=== PATIENT | female | born 1935 | race Caucasian/White ===

== ENCOUNTER 2017-01-10 12:04 | Observation (INO) | payer MEDICARE, OTHER ==
[~2017-01-10] VITALS: Ht 160 cm; Wt 85.0 kg
[~2017-01-10 12:04] MED LIST: ACET-1453 PO; ALLO100T PO; ASPI-653 PO; BANO NS; CALC1CAP26 PO; CHOL500011 PO; LYR75 PO; OMEG1CAP20 PO; OMEP20TA86 PO; PRE5 PO; PRED5TAB PO; SIMV80TA PO; SYN.1T2 PO; TOPR25T PO; [UNRECOGNIZED DRUG - CODE] PO
[2017-01-10 12:29] VITALS: BP 118/70; PULSE 69; RESP 19; O2SAT 100
--- NOTE | 2017-01-10 12:56 | DRSVH ---
PROCEDURE: X-RAY CHEST ONE VIEW, PORTABLE ([id number]) INDICATIONS: FOUND UNRESPONSIVE TECHNIQUE: One view of the chest was acquired. COMPARISON: None. FINDINGS: Surgical changes and devices: None. Lungs and pleura: No pleural effusions or pneumothorax. Lungs are clear. Mediastinum: Mediastinal contours appear normal. Heart size is normal. Bones and chest wall: No suspicious bony lesions. Overlying soft tissues appear unremarkable. IMPRESSION: No acute process. Dictated by: Anita Umanzor M.D. on 01/10/2017 at 12:55 Approved by: Anita Umanzor M.D. on 01/10/2017 at 12:55
[2017-01-10 12:59] VITALS: BP 133/63; PULSE 59; RESP 15; O2SAT 99
[2017-01-10 12:59] LABS: BASOPHILS % (AUTO) 0.2 % (0-3); EOSINOPHILS % (AUTO) 0.3 % (0-5); MONOCYTES % (AUTO) 7.2 % (4-12); Mean Corpuscular Volume 92.4 fL (81-100); NEUTROPHILS % (AUTO) 60.7 % (40-74); Platelet Count 197 bil/L (150-400)
--- NOTE | 2017-01-10 13:19 | ED.REPORT ---
HPI-Altered Mental Status Date of Service Jan 10, 2017 ED Provider: Ras Sullivan MD An 81 year old female with h/o macular degeneration, UT w/stents, and adrenal insufficiency presents to the ED via EMS due to syncope onset earlier today. Per EMS, patient she was found unresponsive in the passenger seat of her vehicle while she was being driven by . On scene, her blood pressure was 70 palp and HR was 50. Per nurse, she was given 500 cc fluid en route, pressure climbed into the 90's she is now 133/63. Patient reports that she had leaned back in the car to take a nap. She reports similar syncope episode in the past. Patient was being driven to GI appointment to be seen for 6 weeks of diarrhea. She reports intermittent diarrhea for 3-4 years. In mid-november she started to have diarrhea 3x daily. Diarrhea has been accompanied by weight loss (25 pounds in 6 weeks) , abdominal pain described as pressure, lightheadedness, fatigue and some hematochezia. She reports being dehydrated right now. She denies any current abdominal pain, chills, diaphoresis, or any other pain at this time. She took 3 Imodium this morning . Nursing Notes Stated Complaint: LOC Chief Complaint: General Complaint Nursing Notes Reviewed: Yes ([employer], [employer] not reconciled) Allergies: Coded Allergies: NSAIDS (Non-Steroidal Anti-Inflamma (Verified Allergy, Unknown, 01/10/17) Silver (Verified Allergy, Unknown, 01/10/17) alendronate sodium (Verified Allergy, Unknown, 01/10/17) celecoxib (Verified Allergy, Unknown, 01/10/17) fentanyl (Verified Allergy, Unknown, 01/10/17) APNEA gabapentin (Verified Allergy, Unknown, 01/10/17) OVER SEDATION omeprazole (Verified Allergy, Unknown, 01/10/17) silver (Verified Allergy, Unknown, 01/10/17) RED ITCHY RASH Uncoded Allergies: ANTI INFLAMMATORIES (Allergy, Unknown, 01/10/17) Scheduled Acetaminophen (Tylenol Arthritis) 650 Mg Tablet.er 1,300 MG PO QAM Allopurinol (Allopurinol) 300 Mg Tablet 300 MG PO QAM Aspirin (Aspirin) 81 Mg Tablet 81 MG PO HS Atorvastatin Calcium (Atorvastatin Calcium) 40 Mg Tablet 40 MG PO HS Calcium Carbonate/Vitamin D3 (Calcium 600 + Vit D Tablet) 1 Each Tablet 1 EACH PO BID Cholecalciferol (Vitamin D3) (Vitamin D3) 5,000 Unit Capsule 5,000 UNIT PO QAM Dextran 70/Hypromellose/Pf (Tears Naturale Free Drops) 1 Each Droperette 2 DROP BOTH_EYES BID Fish Oil/Dha/Epa (Fish Oil 1,200 mg Fish Oil) 1 Each Capsule 1 EACH PO QAM L. Acidophilus/L. Rhamnosus (Probiotic 15 Billion Cell Cap) 15 Billion Cell Capsule 1 EACH PO QAM Levothyroxine (Levothyroxine) 100 Mcg Tablet 100 MCG PO QAM Losartan Potassium (Losartan Potassium) 25 Mg Tablet 25 MG PO QAM Metoprolol Tartrate (Metoprolol Tartrate) 25 Mg Tablet 25 MG PO QAM Multivitamin (Multivitamins) 1 Each Capsule 1 EACH PO QAM Pantoprazole DR (Pantoprazole DR) 40 Mg Tablet.dr 40 MG PO QAM Prednisone (PredniSONE) 5 Mg Tab 5 MG PO QAM Pregabalin (Lyrica) 150 Mg Capsule 150 MG PO HS Triamterene/HCTZ 75-50 mg (Triamterene/HCTZ 75-50 mg) 1 Each Tablet 1 EACH PO QAM Ubidecarenone/Vit E Acetate (Co Q-10 100 mg Softgel) 1 Each Capsule 1 EACH PO HS Vit C/Tonio AC/Lut/Copper/Znox (Preservision Lutein Softgel) 1 Each Capsule 1 EACH PO BID diphenhydrAMINE HCl (Benadryl) 25 Mg Capsule 25 MG PO HS General Time Seen by MD: 13:15 Chief Complaint Other (syncope) Hx Obtained From: Patient, EMS Arrived By: Ambulance Sudden in Onset?: No Onset Occurred: 1 - 4 hours ago Symptom Duration: Duration unknown Progression since Onset: Gradually improving Severity: Current: No pain currently Severity: Maximum: Moderate Recent Healthcare: Recent doctor visit Similar Sx Previous: No Past Medical History Past Medical History Mild [place]'s disease, on prednisone 5 mg daily currently (has instructions to increase to 50 mg daily when ill or 20 mg every 12 for gout attack) chronic mild intermittan diarrhea for last 3-4 years, that was intermittent-however there has been a much worsening 3x daily since November, now w/25lb unintential wt loss History of a squamous cell carcinoma Reports: Coronary artery disease (status post UT in 2002 with 2 stents), GERD, Hyperlipidemia, Hypertension Reports: Thyroid disease (hypothyroid) Past Surgical History A catheterization with 2 stents in 2002 Left hip replacement Right knee replacement Reports: Cataract surgery, Hysterectomy, Tonsillectomy Social History She has not driven a vehicle in 6 years. Review of Systems Review of Systems Note: Dehydrated Constitutional: Reports: Fatigue, Recent wt loss, Denies: Chills GI: Reports: Diarrhea, Denies: Abdominal pain Skin: Denies Diaphoresis Neurologic: Reports: Lightheaded, Syncope Complete sys rev & neg: except as marked. Physical Exam Initial Vital Signs Vital Signs (First) Date Time Temp Pulse Resp B/P Pulse Ox O2 Delivery O2 Flow Rate FiO2 01/10/17 12:29 36.4 69 19 118/70 100 Room Air Initial VS: Reviewed, Vital signs normal, Vital signs abnormal (reportedly hypotensive for EMS with blood pressure of 70 or 80) General/Constitutional: Awake, Alert Appropriate. Globaly weak, but answers questions and provides a good history. Head / Eyes: Atraumatic, Normocephalic, PERRL, EOMI Neck: Atraumatic, Supple Respiratory / Chest: Atraumatic, Breath sounds NL, Breath sounds = bilat, No respiratory distress, No rales, No rhonchi, No wheezing Cardiovascular: Heart rate NL, Regular rhythm, Heart sounds NL, No gallop, No murmurs, No rubs Heart tones normal. No edema. Neurologic: Oriented X3, Speech NL No focal deficit. Mouth: Positive: Mucous membranes dry Abdomen: Atraumatic, Soft, Non-tender, No guarding, No rebound No peritonitis. Skin: Atraumatic, Color NL, Warm, Dry Interpretation & Diagnostics Lab Results Interpretation Result Diagram: 01/10/17 1251 01/10/17 1251 Test 01/10/17 12:51 01/10/17 14:25 White Blood Count 10.5th/mm3 (3.8-10.1) Red Blood Count 4.10mil/mm3 (3.90-5.20) Hemoglobin 12.3g/dL (12.0-15.6) Hematocrit 37.9% (35.0-46.0) Mean Corpuscular Volume 92.4fL (81-100) Mean Corpuscular Hemoglobin 30.0pg (27.0-35.0) Mean Corpuscular Hemoglobin Concent 32.5% (32.0-37.0) Red Cell Distribution Width 13.6% (12.3-15.4) Platelet Count 197bil/L (150-400) Neutrophils (%) (Auto) 60.7% (40-74) Lymphocytes (%) (Auto) 31.4% (14-46) Monocytes (%) (Auto) 7.2% (4-12) Eosinophils (%) (Auto) 0.3% (0-5) Basophils (%) (Auto) 0.2% (0-3) Sodium Level 138mEq/L (134-144) Potassium Level 4.6mEq/L (3.5-5.2) Chloride Level 98mEq/L (97-108) Carbon Dioxide Level 21mmol/L (18-29) Blood Urea Nitrogen 34mg/dL (8-27) Creatinine 1.50mg/dL (0.57-1.00) Estimat Glomerular Filtration Rate 48mL/min (>59) Glucose Level 129mg/dL (60-99) Calcium Level 10.6mg/dL (8.5-10.1) Magnesium Level 1.9mg/dL (1.6-2.6) Total Bilirubin 0.3mg/dL (0.0-1.2) Aspartate Amino Transf (AST/SGOT) 28U/L (0-50) Alanine Aminotransferase (ALT/SGPT) 15U/L (0-32) Alkaline Phosphatase 55U/L (25-165) Troponin T 0.051ug/L (0.0-0.011) Total Protein 7.9g/dL (6.4-8.4) Albumin 4.3g/dL (3.4-5.0) Lactic Acid Level 2.0mmol/L (0.4-2.0) Lab Results Interpretation: CBC mild leukocytosis, nonspecific CMP renal insufficiency suspect acute kidney injury, technically unknown baseline Patient reports stool studies obtained as an outpatient were reportedly negative, husbands working to get a copy Troponin elevated ECG Interpretation ECG Interpretation: Rate is 58. Sinus rhythm. Bradycardia. Time: 12:55 Interpreted by: ED physician ECG Interpretation: Rate is 57. Normal sinus rhythm. No acute ischemia abnormality. No interval change when compared to EKG 1. Time: 14:09 Interpreted by: ED physician X-Ray Chest Interpretation Chest Xray Interpretation: IMPRESSION: No acute process. Dictated by: Anita Umanzor M.D. on 01/10/2017 at 12:55 Approved by: Anita Umanzor M.D. on 01/10/2017 at 12:55 Interpretation / Wet Read by: Interpret - Radiologist CT Head Interpretation IMPRESSION: 1. No acute intracranial abnormality. 2. Chronic left frontal infarct. Dictated by: Anita Umanzor M.D. on 01/10/2017 at 13:57 Approved by: Anita Umanzor M.D. on 01/10/2017 at 13:58 Interpretation / Wet Read by: Interpret - Radiologist Re-Eval/Medical Decision Med Decision/Clinical Course This is an 81-year-old female chronic Jeffrey's on daily prednisone he reports she has had some intermittent chronic diarrhea for several years, starting November is a dramatic worsening. She has lost 25 pounds unintentionally, become increasingly weak. Today she had her driving her to an appointment to see a GI specialist in [place] for the first time for further evaluation, as she lives on AND has been had all of her care through her PCP there including a reportedly negative status stool studies, she felt dizzy, so laid back and told her that she wanted to stop at the next breast area because she is concerned about diarrhea, and when the stopped, she was unresponsive and middle to wake up. No extra called, and the patient was hypotensive blood pressure 70, but regained consciousness immediately with IV fluids on arrival she is now normotensive and has no complaints but able to give a reasonable history. She denies fevers chills blood loss other than a trace amount of blood maybe 4 weeks ago there was transient, and has not recurred. She denies chest pain or cardiac symptoms-but does have a previous history of cardiac stents following an UT in 2002. She denies abdominal pain. Exam she does appear clinically dehydrated, but does not appear toxic. Heart lung exams are normal common abdomen is entirely soft nontender without signs of peritonitis. An EKG reveals no ischemic symptoms, but is repeated when the troponin was elevated and again no acute ischemic changes evident. The patient's responded to IV fluids, given her Jeffrey's severity of presentation C stress dose steroids with administrated dose of hydrocortisone. He also received aspirin. I suspect the troponin bump was secondary to the hypotension and demand ischemia rather than a primary cardiac event, but the overall presentation highly suggestive of diarrhea leading to volume depletion. The patient's done while in the department and clinically appears well. I contacted the GI doctor in [place] ends the patient and informed them she missed her appointment. At this point the plan is admission to the hospital, continued fluid administration, I would recommend serial enzymes, and GI consultation is been requested-with the thought that once the cardiac stability is been better proven, jackets E the patient for their input on this worsening GI illness. At this stage I am not finding clinical features of hemorrhage or infection to necessitate blood administration or antibiotics. The patient lab work is demonstrated for some renal deficiency, and I suspect acute kidney injury in this setting of this volume depletion as described. However I do not have prior creatinine for direct comparison. Source of Hx: Old records, EMS Re-Evaluation/Progress : Time of Eval: 13:29 Re-Evaluation/Progress Note: Explained plan for possible admission. Consultation : Referral / Consult Name: May Jimenez MD Call Returned at: 14:17 Display Screen Fabricator: Will see patient, Agrees with eval Note: Dsicussed patient case with Dr. Shirley , Print Support Specialist who will see the patient tomorrow. Differential Diagnosis: Positive: Dehydration, Hypotension, Negative: Congestive heart failure, Dystonic reaction, Intracerebral hemorrhage, Sepsis, Serotonin syndrome, Uremia Counseled Regarding: Diagnosis, Lab results, Need for follow-up, Need for admission Patient Discharge & Departure Impression: Primary Impression: Hypovolemic shock Additional Impressions: Dehydration Diarrhea Diarrhea type: unspecified type Qualified Code: R19.7 - Diarrhea, unspecified Elevated troponin Acute kidney injury Adrenal insufficiency Disposition: ADMITTED TO HOSPITAL Referrals: Lavell Sullivan MD (PCP) Crit Care Except Billable Proc Time Spent: 30-74 minutes Services Performed: Patient management by me, Time spent at bedside, Reviewing test results, Reviewing imaging, Discussing patient care, Documentation in record, Time with fam/surrogate, Other Scribe Attestation Portions of this note were transcribed by Nathanael Adames. I, Dr. Sullivan personally performed the history, physical exam and medical decision-making; I reviewed and confirmed the accuracy of the information in the transcribed note. Signed by: Velma Hernandez, 01/10/2017,1136. copies to: Lavell Sullivan MD, Matthew F MD Jan 10, 2017 13:19 Nathanael Adames Jan 10, 2017 13:29
[2017-01-10] MEDS ORDERED: 0.9% Sodium Chloride 1,000 ML IV ONE ×2 (13:20→13:35)
[2017-01-10 13:31] LABS: TROPONIN T 0.051 ug/L (0.0-0.011)
[2017-01-10 13:35] LABS: Magnesium 1.9 mg/dL (1.6-2.6)
[2017-01-10] MEDS ORDERED: Hydrocortisone 50 mg/mL 2 mL Inj IVPUSH ONE (13:35)
--- NOTE | 2017-01-10 14:00 | DRSVH ---
PROCEDURE: CT BRAIN WITHOUT CONTRAST ([id number]) INDICATIONS: ALtered LOC TECHNIQUE: Noncontrast 4.5 mm thick angled axial sections acquired from the foramen magnum to the vertex, with c oronal reformats. COMPARISON: None. FINDINGS: Image quality: Excellent. CSF spaces: Basal cisterns are patent. No extra-axial fluid collections. The ventricles are symmet enmanuel in size and shape. Brain: No intracranial bleeds or masses. Moderate chronic infarct within the left anteroinferior fr ontal lobe. There is cerebral volume loss for age, with resultant ventricular and sulcal prominence. There are periventricular and deep white matter chronic small vessel ischemic changes. There is int racranial internal carotid artery atherosclerosis. Skull and face: Calvarium and visualized facial bones appear intact, without suspicious lesions. Sinuses: Visualized sinuses and mastoids are clear. IMPRESSION: 1. No acute intracranial abnormality. 2. Chronic left frontal infarct. Dictated by: Anita Umanzor M.D. on 01/10/2017 at 13:57 Approved by: Anita Umanzor M.D. on 01/10/2017 at 13:58
[2017-01-10] MEDS ORDERED: PANT40TA3 PO (14:38)
[2017-01-10] MEDS ORDERED: ACET-2766 PO (14:38)
[2017-01-10] MEDS ORDERED: ALLO300T2 PO (14:38)
[2017-01-10] MEDS ORDERED: PREG150C PO (14:38)
[2017-01-10] MEDS ORDERED: METO25TA6 PO (14:38)
[2017-01-10] MEDS ORDERED: LEVO100T6 PO (14:38)
[2017-01-10] MEDS ORDERED: ATOR40TA69 PO (14:38)
[2017-01-10] MEDS ORDERED: LOSA25TA21 PO (14:38)
[2017-01-10] MEDS ORDERED: PRD5T PO (14:38)
[2017-01-10] MEDS ORDERED: TRIA1TAB5 PO (14:38)
[2017-01-10] MEDS ORDERED: CHOL5000 PO (14:43)
[2017-01-10] MEDS ORDERED: DEXT1DRO BOTH_EYES (14:43)
[2017-01-10] MEDS ORDERED: CALC-243 PO (14:43)
[2017-01-10] MEDS ORDERED: FISH1CAP15 PO (14:43)
[2017-01-10] MEDS ORDERED: ASPI-973 PO (14:43)
[2017-01-10] MEDS ORDERED: VIT1CAPS27 PO (14:43)
[2017-01-10] MEDS ORDERED: MULT1CAP33 PO (14:43)
[2017-01-10] MEDS ORDERED: DIPH25CA6 PO (14:43)
[2017-01-10] MEDS ORDERED: L. A1CAP13 PO (14:43)
[2017-01-10] MEDS ORDERED: UBID1CAP52 PO (14:43)
[2017-01-10] MEDS ORDERED: 0.9% Sodium Chloride 1,000 ML IV SCH (15:17)
[2017-01-10] MEDS ORDERED: Ondansetron 2 mg/mL 2 mL Inj IVPUSH PRN ×2 (15:20→17:45)
[2017-01-10] MEDS ORDERED: Alum-Mag Hydrox-Simeth 30 mL Suspension PO PRN ×2 (15:20→17:45)
[2017-01-10 15:30] VITALS: BP 137/71; PULSE 57; RESP 14; O2SAT 97
--- NOTE | 2017-01-10 15:34 | PCM.CHPMED ---
Subjective Date of Service: Jan 10, 2017 Primary Physician: Admitting Physician: Primary Care Physician: Lavell Sullivan MD Attending Physician: Admit Status: From the Emergency Department Chief Complaint: Chief Complaint: Reason for consult: chronic diarrhea History of Present Illness: GASTEROENTEROLOGY CONSULTATION: Ms. Lachelle Traylor is a pleasant 81 yo female with history of colonic polyps, GERD, adrenal insufficiency on daily prednisone, WI w/stents, HTN, and macular degeneration who presents to the ED via EMS due to syncope onset prior to arrival. The patient reports intermittent chronic diarrhea for 3-4 years, but it has been worsening since mid November 2016. She has had at least 3 loose, "baby -food consistency" BMs daily. She notes occasional watery stools, but it is soft most of the time. Patient reports dull epigastric pain and increased stooling urgency with food intake. She reports no control of her BM, but denies urinary or fecal incontinence. Because of this, she does not want to eat and has lost 25 pounds unintentionally in 6 weeks. She admits to occasional nausea, persistent fatigue, lightheadedness, and generalized weakness for 6 weeks. She denies vomiting, hematemesis, melena, fever, chills, CP, or SOB. She reports a couple episodes of trace red blood in her stools 3 weeks ago. Patient reports the recent outpatient labs and stool studies were negative. Patient follows up with a Dr. Fenton (GI) in [place]. Patient has a history of multiple colonic polyps and has had colonoscopy every 2 years with the last colonoscopy 2 years ago. She also has a couple normal EGD with the last one in 03/2016 as part of the diarrhea workup, and it was also negative. Patient denies personal or family history of inflammatory bowel disease, Celiac's disease, or other GI issues. She denies any recent travel. Patient was told by her a and p technician she should never have NSAIDs due to the adrenal insufficiency (that was due to arthritis medications per the patient). She admits to regular Tylenol use for the arthritic pain. Today, she had her driving her to an appointment to see a GI specialist in [place] for further evaluation of the diarrhea. While she was in the car, she felt dizzy, so she laid back and told her that she wanted to stop at rest area because she was concerned about diarrhea. At the rest area, the patient was unresponsive and EMS was called. Per EMS, her blood pressure was 70 and HR was 50. Per nurse, she was given 500 cc fluid en route, pressure climbed into the 90's, and she is now 133/63. The patient reports several similar episodes in the past that usually due to dehydration. She does not remember the details of the event, but believes that she passed out for at least 30 minutes. She admits that she has not been drinking much. Patient states to feel much better now after the IVF. She denies any abdominal pain, nausea, vomiting, CP, or SOB at this point. By the time the patient arrived to the ED, her vital signs normalized and labs were only significant for elevated BUN (34) and Cr (1.5). Normal hemoglobin of 12.3. GI service was consulted for input on the worsening chronic diarrhea. Review of Systems: Constitutional: Reports: Weakness, Denies: Chills, Fever Eyes: Denies: Blurred Vision, Conjunctive Inflammation Neck: Denies: Pain, Swelling Cardiovascular: Denies: Chest Pain, Edema, Irregular Heart Rate, Palpitations, Rapid Heart Rate, SOB on Exertion Respiratory: Denies: Cough, Cough with bloody sputum, Shortness of Breath Gastrointestinal: Reports: Abdominal Pain, Blood in stool (red), Change in Appetite, Diarrhea, Heartburn, Nausea, Denies: Black tarry stools, Constipation, Vomiting Genitourinary: Reports: No burning or pain with urination, Denies: Dysuria, Hematuria, Nocturia Neurological: Reports: Change in LOC, Somnolence, Denies: Change in Speech, Confusion, Dizziness, Localized Weakness, Numbness Psychologic: Denies: Agitation, Anxiety, Depression Hematologic: Denies: Abnormal Bleeding, Bruising PMH Past Medical History Mild [place]'s disease, on prednisone 5 mg daily currently (has instructions to increase to 50 mg daily when ill or 20 mg every 12 for gout attack) Chronic diarrhea for last 3-4 years, that was intermittent-however there has been a much worsening 3x daily since November, now w/25lb unintential wt loss History of a squamous cell carcinoma Reports: Coronary artery disease (status post WI in 2002 with 2 stents), GERD, Hyperlipidemia, Hypertension Reports: hypothyroidism Surgical History A catheterization with 2 stents in 2002 Left hip replacement Right knee replacement Reports: Cataract surgery, Hysterectomy, Tonsillectomy Home Medications Patient does not recall all her medications. Med list to be reconciled by the hospitalist team. Allergies: Coded Allergies: NSAIDS (Non-Steroidal Anti-Inflamma (Verified Allergy, Unknown, 01/10/17) Silver (Verified Allergy, Unknown, 01/10/17) alendronate sodium (Verified Allergy, Unknown, 01/10/17) celecoxib (Verified Allergy, Unknown, 01/10/17) fentanyl (Verified Allergy, Unknown, 01/10/17) APNEA gabapentin (Verified Allergy, Unknown, 01/10/17) OVER SEDATION omeprazole (Verified Allergy, Unknown, 01/10/17) silver (Verified Allergy, Unknown, 01/10/17) RED ITCHY RASH Uncoded Allergies: ANTI INFLAMMATORIES (Allergy, Unknown, 01/10/17) Family History Family History Father of heart attack at 52 yo. Mother of pneumonia at 72 yo. Also history of dementia. Denies family history of inflammatory bowel disease or colon/gastric cancer. Social History Hx Alcohol Use: NoHx Substance Use: NoHx Tobacco Use: No (Pt never smokes, but her does) Living Arrangement: with Family Exam Vital Signs Vital Sign - Last Date Time Temp Pulse Resp B/P Pulse Ox O2 Delivery O2 Flow Rate FiO2 01/10/17 12:59 59 15 133/63 99 Room Air 01/10/17 12:29 36.4 General: Alert, Oriented X3, Cooperative, No Acute Distress Head: Normal Eyes: PERRLA, EOMI, Scleral Anicteric Mouth: Mucous Membranes Dry Neck: Supple, No Thyromegaly Chest & Lungs: Chest Wall Normal, Clear to auscultation & percussion, No adventitious breath sounds Cardiovascular: Regular Rate/Rhythm, Normal S1, Normal S2, Murmur (II/ systolic murmur) Abdomen: Non-tender, Non-distended, Benign, No masses, No hepatosplenomegaly, Normoactive bowel tones, Soft, Other (umbilical hernia noted, reducible and nontender to palpation) Musculoskeletal: Unremarkable Extremities: Edema (mild pitting edema in lower extremities) Neurological: Grossly Neurologically Intact, Normal Speech Lab and Diagnostics Result Diagram: 01/10/17 1251 01/10/17 1251 Assessment & Plan Assessment This is an 81 yo female with history of colonic polyps, GERD, adrenal insufficiency on daily prednisone, WI w/stents, HTN, and macular degeneration who presents to the ED via EMS due to syncope onset prior to arrival. She was found to have volume depletion that responded well to IVF. CT head and EKG were normal. Although the elevated troponin could be secondary to GOOD from dehydration, she needs further cardiac workup. GI service was consulted to help investigating the causes of the patient's worsening diarrhea once the cardiac stability is been better proven. Possible causes of her chronic diarrhea include inflammatory bowel disease, irritable bowel syndrome, functional diarrhea, uncontrolled adrenal insufficiency, colitis, malabsorption syndromes, or bacterial overgrowth. IMPRESSIONS: 1. Acute on chronic diarrhea of unknown etiology. 2. Adrenal insufficiency on daily Prednisone 3. History of colonic polyps 4. GERD RECOMMENDATIONS: - Obtain outpatient stools study results to rule out infectious causes. - Continue to monitor stool output and consider repeat the PCR stool if patient has persistent diarrhea. - We recommend an abdominal CT to rule out malignancy. - Because the patient has established care with Dr. Fenton as outpatient and has had extensive GI workups, including both EGD and colonoscopy within the last 2 years, we will defer the colonoscopy to outpatient. - We also advised the patient to follow up with Endocrinology for the adrenal insufficiency. - Continue home dose of Protonix PO. Thank you for allowing us to participate in this patient's care. Do not hesitate to contact us for any question or concern. Problems: Pain Evaluation: Adequate Pain Control GI Prophylaxis: Proton Pump Inhibitor VTE Prophylaxis: SCDs Resuscitation Status: CPR: Attempt Resuscitation Attending Statement pt seen and examined with resident physician patient reports work up of diarrhea in the past with Dr Fenton in [place]. She reports EGD and colonoscopy done in the past which was negative. She had appoint,ment today with Dr Fenton as diarrhea has worsened,however because of syncopal episode she was admitted to our hospital. She reports rafael loss of approximately 20lbs which is concerning. Agree with CT scan of abdomen and pelvis. If CT is negative then would recommend repeating EGD and colonoscopy, followed by neuro endocrine workup if endoscopy negative. In the mean would recommend trial of cholestyramine for diarrhea. Denise Mazariegos DO Jan 10, 2017 15:34 May Jimenez MD Jan 12, 2017 10:51
[2017-01-10 16:49] VITALS: BP 141/75; PULSE 56; RESP 16; O2SAT 97
[2017-01-10] MEDS ORDERED: Polyethylene Glycol (PEG) 17 Gm Powder PO PRN (17:45)
[2017-01-10 17:55] VITALS: PULSE 70
[2017-01-10] MEDS: 0.9% Sodium Chloride 1,000 ML IV SCH (18:00)
--- NOTE | 2017-01-10 18:08 | PCM.HPMED ---
Subjective Date of Service Jan 10, 2017 Primary Provider: Admitting Physician: Dedrick Serna MD Primary Care Physician: Lavell Sullivan MD Attending Physician: Dedrick Serna MD Chief Complaint: Reason for consult: chronic diarrhea History of Present Illness: Patient is an 81-year-old female with history of AR s/p stents, colonic polyps, GERD, adrenal insufficiency on daily prednisone, and hypertension presenting with syncope. The patient attributes her syncopal episode to worsening chronic diarrhea. The patient reports onset of intermittent diarrhea of about 4 years. She reports "baby-food" consistency bowel movements. Patient reports occasional epigastric pain and tenesmus after eating. As a result of her GI problems, the patient has limited her food intake and has lost approximately 25 pounds over the past couple of months. The patient is followed by publications inspector, Dr. Anita Fenton, located in [place]. The patient reports associated nausea, fatigue, and lightheadedness but otherwise denies chest pain, shortness of breath, vision change, fever, chills. The patient reports the syncopal episode occurred today while her was driving. The patient reports a large, watery bowel movement yesterday with subsequent lightheadedness but did not rehydrate herself afterwards. The patient reports feeling dizzy while in the car. She requested to stop at the rest area but became unresponsive. Her summoned EMS who fond the patient to be hypotensive with systolic blood pressure in the 70s and heart rate in the 50s. The patient was resuscitated with 500cc fluid en route. The patient reports similar episodes in the past, which were due to dehydration. The patient was subsequently brought to [facility] for further evaluation. In the ED, vitals: temp 36.4, HR 69, RR 16 satting 100% on room air, BP 118/70. Patient received 1L NS. CT brain did not identify any acute intracranial abnormality. Chest x-ray without any acute processes. Review of Systems: A comprehensive review of systems was conducted with the patient and found to be negative except as above in the History of Present Illness. Allergies Coded Allergies: NSAIDS (Non-Steroidal Anti-Inflamma (Verified Allergy, Unknown, 01/10/17) Silver (Verified Allergy, Unknown, 01/10/17) alendronate sodium (Verified Allergy, Unknown, 01/10/17) celecoxib (Verified Allergy, Unknown, 01/10/17) fentanyl (Verified Allergy, Unknown, 01/10/17) APNEA gabapentin (Verified Allergy, Unknown, 01/10/17) OVER SEDATION omeprazole (Verified Allergy, Unknown, 01/10/17) silver (Verified Allergy, Unknown, 01/10/17) RED ITCHY RASH Uncoded Allergies: ANTI INFLAMMATORIES (Allergy, Unknown, 01/10/17) Home Medications Acetaminophen 1300mg QAM Allopurinol 300mg daily [id number] daily Atorvastatin 40mg QHS Calcium + Vitamin D Vitamin D3 5000u daily Benadryl 25mg QHS Fish oil 1200mg daily Levothyroxine 100mcg daily Losartan 25mg daily Metoprolol 25mg daily Multivitamin daily Protonix 40mg daily Prednisone 5mg daily Pregabalin 150mg QHS Co Q-10 100mg QHS PMH Adrenal insufficiency on prednisone 5 mg daily Chronic diarrhea History of squamous cell carcinoma Coronary artery disease with history of AR s/p 2 stents GERD Hyperlipidemia Hypertension Hypothyroidism . 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 External ears without defect. Pupils equal, round, and reactive to light. Anicteric sclerae, moist conjunctivae, and no lid lag. Oropharynx free of erythema and cobble stoning with moist mucosa. Neck: Supple with full range of motion. Cardiovascular: Regular rate and rhythm. III/ systolic murmur best heard at base. Pulmonary: Clear to auscultation bilaterally with no crackles, wheezes, or rhonchi. Normal respiratory effort with no use of accessory muscles. Abdomen: Bowel tones present. Soft, nontender, nondistended. Extremities: No clubbing, cyanosis, edema, or lymphadenopathy appreciated. Skin: Normal temperature, turgor, and texture; no rash, ulcers, or subcutaneous nodules appreciated. Neurological: Cranial nerves grossly intact. Psychiatric: Normal mood and affect. Alert and oriented to person, place, and time. Lab and Diagnostics Result Diagram: 01/10/17 1251 01/10/17 1251 X-Rays, CTs and MRIs Date of Service: 01/10/17 1319 PROCEDURE: CT BRAIN WITHOUT CONTRAST ([id number]) IMPRESSION: 1. No acute intracranial abnormality. 2. Chronic left frontal infarct. Dictated by: Anita Umanzor M.D. on 01/10/2017 at 13:57 Approved by: Anita Umanzor M.D. on 01/10/2017 at 13:58 ----- Date of Service: 01/10/17 1228 PROCEDURE: X-RAY CHEST ONE VIEW, PORTABLE ([id number]) IMPRESSION: No acute process. Dictated by: Anita Umanzor M.D. on 01/10/2017 at 12:55 Approved by: Anita Umanzor M.D. on 01/10/2017 at 12:55 Assessment & Plan Patient is an 81-year-old female with history of AR s/p stents, colonic polyps, GERD, adrenal insufficiency on daily prednisone, and hypertension presenting with syncope. Hospital day #1. 1. Syncope, acute. Present on admission. Resolved -Etiology likely hypotension. EMS found patient with systolic blood pressure in the 70s. This is likely secondary to hypovolemia from diarrhea. -Brain CT without any acute intracranial abnormality -Since fluid resuscitation the patient reports feeling back to baseline 2. Unintentional weight loss. Present on admission. Active -Patient has lost about 25lb over the past couple of months -Concern for possible malignancy -Will order CT chest, abdomen and pelvis for tomorrow. Check renal function prior to proceeding 3. Acute kidney injury. Present on admission. Active -Likely secondary to decreased intake and diarrhea -IV NS at 80cc/hour -Repeat CMP in AM -Avoid nephrotoxins 4. Elevated troponin. Present on admission. Active -Likely secondary to demand -Trending troponin 5. Chronic diarrhea. Present on admission. Active -GI stool PCR pending -Patient will need to follow up with her publications inspector in [place] 6. Adrenal insufficiency, chronic. Present on admission. Active -Stress dose prednisone 20mg daily. Patient regularly takes 5mg daily 7. Hypercalcemia, chronic. Present on admission. Active -Patient reports being told of elevated calcium levels in the past -Follow with CMP 8. Hypertension, chronic. Present on admission -Hold home losartan and diuretics due to GOOD -Reassess renal function in AM and restart antihypertensives if improvement in renal function 9. CAD, chronic. Present on admission -Continue atorvastatin 80mg, metoprolol 25mg daily, ASA 81mg daily 10. GERD, chronic. Present on admission. Active -Continue home Protonix 40mg daily 11. Peripheral neuropathy, chronic. Present on admission -Will reduce dose of Lyrica to 75mg QHS given decrease in renal function. Regular home dose is 150mg QHS 12. Postnasal drip, chronic. Present on admission -Continue home Benadryl 25mg QHS Patient Status: Patient is admitted under observation status with expected length of stay less than 2 midnights due to severity of presenting symptoms and complexity of treatment plan GI Prophylaxis: Proton Pump Inhibitor VTE Prophylaxis: Sub-Q Heparin (Unfractionated), SCDs Resuscitation Status: CPR: Attempt Resuscitation Attending Statement The patient was seen and examined together with Dr. Pa on 01/10/2017 and I agree with the history, exam and plan as outlined in the note above. . copies to: Lavell Sullivan MD, Bob A DO Jan 10, 2017 18:07 Dedrick Serna MD Jan 11, 2017 08:34
--- NOTE | 2017-01-10 18:46 | NUR ---
Admit Patient arrived ED via gurney. Able to stand and walk from gurney to bed independently. Patient A&Ox3. Denies pain/dyspnea/dizziness at this time. VSS. Patient oriented to room, call light with in reach.
[2017-01-10 20:22] VITALS: BP 139/77; PULSE 55; RESP 16; O2SAT 100
[2017-01-10] MEDS ORDERED: diphenhydrAMINE 25 mg Capsule PO SCH (21:00)
[2017-01-11] MEDS: Heparin 5,000 Unit/mL Inj SUBQ SCH ×2 (00:45→09:43)
--- NOTE | 2017-01-11 03:25 | NUR ---
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 when ambulating to the bathroom, she had a difficult time deciphering between the bsc and the toilet. non skin slipper socks on. reviewed fall precautions with patient. demonstrated and verbalized understanding.
[2017-01-11 03:59] VITALS: BP 111/63; PULSE 54; RESP 16; O2SAT 96
[2017-01-11 04:36] LABS: BASOPHILS % (AUTO) 0.1 % (0-3); EOSINOPHILS % (AUTO) 0.1 % (0-5); MONOCYTES % (AUTO) 10.2 % (4-12); Mean Corpuscular Hemoglobin 29.7 pg (27.0-35.0); Mean Corpuscular Volume 91.9 fL (81-100); NEUTROPHILS % (AUTO) 73.3 % (40-74); Platelet Count 145 bil/L (150-400)
[2017-01-11 04:52] LABS: TROPONIN T 0.016 ug/L (0.0-0.011)
[2017-01-11 05:26] VITALS: PULSE 59
[2017-01-11] MEDS ORDERED: Pantoprazole 40 mg ER24 Tablet PO SCH (06:30)
[2017-01-11] MEDS: 0.9% Sodium Chloride 1,000 ML IV SCH (06:36)
[2017-01-11 07:19] VITALS: PULSE 58
[2017-01-11 08:25] VITALS: BP 129/71; PULSE 50; RESP 16; O2SAT 100
[2017-01-11] MEDS ORDERED: predniSONE 5 mg Tablet PO SCH ×2 (08:30)
--- NOTE | 2017-01-11 09:54 | DRSVH ---
PROCEDURE: CT CHEST, ABDOMEN AND PELVIS [facility] CONTRAST ([id number]) INDICATIONS: Weight loss TECHNIQUE: After the administration of oral and intravenous contrast, 5 mm thick sections acquired from the lung apices to the symphysis. 5 mm coronal and sagittal reformats were performed, with additional 7 mm c oronal MIP reformats through the lungs. For radiation dose reduction, the following was used: autom ated exposure control, adjustment of mA and/or kV according to patient size. COMPARISON: None. FINDINGS: Image quality: Excellent. CHEST: Lungs and pleura: No acute airspace opacities. No pleural effusions or pneumothorax. Central and p eripheral airways appear patent and normal in caliber. Mediastinum: Heart size is normal. No pericardial effusion. No mediastinal or hilar adenopathy by size criteria. Thoracic aorta and central pulmonary arteries are normal in size. Esophagus is rosalba l in caliber. [id number] hiatal hernia. Chest wall: No axillary or supraclavicular adenopathy by size criteria. Thyroid gland is hypoplasti c. ABDOMEN: Solid organs: Liver and spleen are normal in size and enhancement. Gallbladder demonstrates multipl e stones without wall thickening. Biliary system is non dilated. Pancreas enhances normally. No ad renal nodules. Kidneys are atrophic with cysts. Peritoneum and bowel: Bowel loops are nonobstructed. There is a thickened appearance of the sigmoid colon as well as incomplete distention. There is narrowing at the pylorus. Nodes and vessels: No retroperitoneal or mesenteric adenopathy by size criteria. Aorta and inferior vena cava are normal in size. Miscellaneous: Fat containing ventral hernia is present. PELVIS: Genitourinary: Bladder wall thickness is normal. Miscellaneous: No inguinal hernias or adenopathy. Bones: No suspicious bony lesions. No vertebral body compression fractures. IMPRESSION: 1. Cholelithiasis without imaging evidence of cholecystitis. 2. Mild thickening of the sigmoid colon. The appearance is likely secondary to incomplete distention, rather than infectious or inflammatory process. 3. Narrowing of the pylorus is present. It is overall nonspecific. Appearance could be secondary to c ontraction. However, if clinically indicated, further evaluation with upper GI or endoscopy may be ob tained. Dictated by: Jasmin Morales M.D. on 01/11/2017 at 9:45 Approved by: Jasmin Morales M.D. on 01/11/2017 at 9:53
--- NOTE | 2017-01-11 10:09 | PCM.DIMED ---
Uma Saleh DO 01/11/17 1008: Discharge Instructions Date of Service Jan 11, 2017 Dates of Hospitalization Jan 10, 2017 at 15:34 Discharge Diagnosis Discharge Diagnosis 1. Syncope, acute. Present on admission. Resolved 2. Unintentional weight loss. Present on admission. Active 3. Acute kidney injury. Present on admission. Resolved 4. Elevated troponin. Present on admission. Improving 5. Chronic diarrhea. Present on admission. Active 6. Adrenal insufficiency, chronic. Present on admission. Active 7. Hypercalcemia, chronic. Present on admission. Resolved 8. Hypertension, chronic. Present on admission. Improved 9. Coronary artery disease, chronic. Present on admission 10. GERD, chronic. Present on admission. Active 11. Peripheral neuropathy, chronic. Present on admission 12. Postnasal drip, chronic. Present on admission Diet Heart Healthy Activity Limited until seen by PCP Call your provider Fever or Chills, Shortness of breath, Bleeding, Chest pain, Vomitting, Excessive diarrhea, Weakness (unilateral) Patient Instructions Follow-up Provider: Lavell Sullivan MD Follow-up with PCP in: 1 week Follow-up in: 2 weeks (, gastroenterology ) Additional Information Please follow up w with Dr. Fenton as outpatient to continue extensive gastrointestinal workups that he had started. Dedrick Serna MD 01/11/17 1649: Discharge Instructions Attending's Statement The patient was seen and examined together with Dr. Saleh on 01/11/2017 and I agree with the history, exam and plan as outlined in the note above. . Uma Saleh DO Jan 11, 2017 10:08 Dedrick Serna MD Jan 11, 2017 16:49
--- NOTE | 2017-01-11 10:16 | NUR ---
Social Work: Discharge Data: Pt is an 81 y/o female admitted for syncope, diarrhea, dehydrated. Pt's PCP is Dr Sullivan, pt's insurance is [employer] with [employer] [facility]. EMR reviewed. Readmit score is 1, low. D/C orders are in. PANEL GLUER met with pt at bedside, role explained. Pt states she lives in [place] on [address] with her spouse in a single story home where she uses no DME and caregives for her spouse. Pt states she does not drive, has no hx of HH or SNF, no LTC or VA benefits. Pt has AD/DPOA in EMR. No d/c planning needs at this time. PANEL GLUER will continue to follow if needs arise. Assessment: Pt who is independent at baseline. Plan: Pt will d/c home via POV with spouse today. No d/c planning needs at this time. PANEL GLUER will continue to follow if needs arise. DARRICK Lowry Addendum: 01/11/17 at 1018 by LUCIA ANGEL Amended: Links added.
--- NOTE | 2017-01-11 10:42 | PCM.DC.MED ---
Discharge Summary Date of Service Jan 11, 2017 Dates of Hospitalization Date of Hospital Admission Jan 10, 2017 at 15:34 Date of Discharge: Jan 11, 2017 Providers: Admitting Physician: Dedrick Serna MD Primary Care Physician: Lavell Sullivan MD Attending Physician: Dedrick Serna MD Diagnosis at Time of Discharge Diagnosis at Time of Discharge 1. Syncope, acute. Present on admission. Resolved 2. Unintentional weight loss. Present on admission. Active 3. Acute kidney injury. Present on admission. Resolved 4. Elevated troponin. Present on admission. Improving 5. Chronic diarrhea. Present on admission. Active 6. Adrenal insufficiency, chronic. Present on admission. Active 7. Hypercalcemia, chronic. Present on admission. Resolved 8. Hypertension, chronic. Present on admission. Improved 9. Coronary artery disease, chronic. Present on admission 10. GERD, chronic. Present on admission. Active 11. Peripheral neuropathy, chronic. Present on admission 12. Postnasal drip, chronic. Present on admission Procedures XRay, CTs & MRIs CT CHEST, ABDOMEN AND PELVIS [facility] CONTRAST IMPRESSION: 1. Cholelithiasis without imaging evidence of cholecystitis. 2. Mild thickening of the sigmoid colon. The appearance is likely secondary to incomplete distention, rather than infectious or inflammatory process. 3. Narrowing of the pylorus is present. It is overall nonspecific. Appearance could be secondary to contraction. However, if clinically indicated, further evaluation with upper GI or endoscopy may be obtained. Dictated and approved by: Jasmin Morales M.D. on 01/11/2017 at 9:45 CT BRAIN WITHOUT CONTRAST IMPRESSION: 1. No acute intracranial abnormality. 2. Chronic left frontal infarct. Dictated and approved by: Anita Umanzor M.D. on 01/10/2017 at 13:57 X-RAY CHEST ONE VIEW IMPRESSION: No acute process. Dictated and approved by: Anita Umanzor M.D. on 01/10/2017 at 12:55 Brief History Admitting Physician: Dedrick Serna MD: Patient is an 81-year-old female with history of PR s/p stents, colonic polyps, GERD, adrenal insufficiency on daily prednisone, and hypertension presenting with syncope. The patient attributes her syncopal episode to worsening chronic diarrhea. The patient reports onset of intermittent diarrhea of about 4 years. She reports "baby-food" consistency bowel movements. Patient reports occasional epigastric pain and tenesmus after eating. As a result of her GI problems, the patient has limited her food intake and has lost approximately 25 pounds over the past couple of months. The patient is followed by steel cutter, Dr. Anita Fenton, located in [place]. The patient reports associated nausea, fatigue, and lightheadedness but otherwise denies chest pain, shortness of breath, vision change, fever, chills. The patient reports the syncopal episode occurred today while her was driving. The patient reports a large, watery bowel movement yesterday with subsequent lightheadedness but did not rehydrate herself afterwards. The patient reports feeling dizzy while in the car. She requested to stop at the rest area but became unresponsive. Her summoned EMS who fond the patient to be hypotensive with systolic blood pressure in the 70s and heart rate in the 50s. The patient was resuscitated with 500cc fluid en route. The patient reports similar episodes in the past, which were due to dehydration. The patient was subsequently brought to [facility] for further evaluation. In the ED, vitals: temp 36.4, HR 69, RR 16 satting 100% on room air, BP 118/70. Patient received 1L NS. CT brain did not identify any acute intracranial abnormality. Chest x-ray without any acute processes. Hospital Course Patient is an 81-year-old female with history of PR s/p stents, colonic polyps, GERD, adrenal insufficiency on daily prednisone, and hypertension presenting with syncope. 1. Syncope, acute. Present on admission. Resolved -Etiology likely hypotension. EMS found patient with systolic blood pressure in the 70s. This is likely secondary to hypovolemia from diarrhea. -Brain CT without any acute intracranial abnormality -Since fluid resuscitation the patient reported feeling back to baseline 2. Unintentional weight loss. Present on admission. Active -Patient has lost about 25lb over the past couple of months -Concern for possible malignancy -CT chest, abdomen and pelvis revealed cholelithiasis without imaging evidence of cholecystitis, mild thickening of the sigmoid colon, and narrowing of the pylorus. -Follow up with Dr. Fenton, patient's steel cutter, recommended upon discharge for further work up if needed 3. Acute kidney injury. Present on admission. Resolved -Likely secondary to decreased intake and diarrhea -IV NS at 80cc/hour 4. Elevated troponin. Present on admission. Improving -Likely secondary to demand 5. Chronic diarrhea. Present on admission. Active -Patient would need to follow up with her steel cutter in [place] 6. Adrenal insufficiency, chronic. Present on admission. Active -Stress dose prednisone 20mg daily. Patient regularly takes 5mg daily -Discharged on home prednisolone, 5 mg daily 7. Hypercalcemia, chronic. Present on admission. Resolved -Patient reports being told of elevated calcium levels in the past -Discontinued home calcium supplement 8. Hypertension, chronic. Present on admission. Stable -Continued home losartan and diuretic upon discharge 9. Coronary artery disease, chronic. Present on admission -Continued atorvastatin 80 mg, metoprolol 25 mg daily, aspirin 81 mg daily 10. GERD, chronic. Present on admission. Active -Continued home protonix 40mg daily 11. Peripheral neuropathy, chronic. Present on admission -Reduced dose of Lyrica to 75mg at bedtime given decrease in renal function. Regular home dose is 150mg QHS -Continued with Lyrica 150mg at bedtime upon discharge 12. Postnasal drip, chronic. Present on admission -Continued home benadryl 25mg QHS Disposition: Patient has been discharged home in a stable condition Exam Vital Signs (Last) Date Time Temp Pulse Resp B/P Pulse Ox O2 Delivery O2 Flow Rate FiO2 01/11/17 09:29 Supplement Oxygen 01/11/17 08:25 50 16 129/71 100 01/11/17 03:59 36.4 Exam General: No acute distress, well-developed, well-nourished, appropriately interactive HEENT: Normocephalic, atraumatic. External ears without defect. Pupils equal, round, and reactive to light. Anicteric sclerae, moist conjunctivae, and no lid lag. Oropharynx free of erythema and cobble stoning with moist mucosa. Neck: Supple with full range of motion. Cardiovascular: Regular rate and rhythm. III/ systolic murmur best heard at base. Pulmonary: Clear to auscultation bilaterally with no crackles, wheezes, or rhonchi. Normal respiratory effort with no use of accessory muscles. Abdomen: Bowel tones present. Soft, nontender, nondistended. Extremities: No clubbing, cyanosis, edema, or lymphadenopathy appreciated. Skin: Normal temperature, turgor, and texture; no rash, ulcers, or subcutaneous nodules appreciated. Neurological: Cranial nerves grossly intact. Psychiatric: Normal mood and affect. Alert and oriented to person, place, and time. Test 01/10/17 12:51 01/10/17 14:25 01/11/17 04:05 Magnesium Level 1.9mg/dL (1.6-2.6) Total Bilirubin 0.3mg/dL (0.0-1.2) Aspartate Amino Transf (AST/SGOT) 28U/L (0-50) Alanine Aminotransferase (ALT/SGPT) 15U/L (0-32) Alkaline Phosphatase 55U/L (25-165) Total Protein 7.9g/dL (6.4-8.4) Albumin 4.3g/dL (3.4-5.0) Lactic Acid Level 2.0mmol/L (0.4-2.0) White Blood Count 6.9th/mm3 (3.8-10.1) Red Blood Count 3.57mil/mm3 (3.90-5.20) Hemoglobin 10.6g/dL (12.0-15.6) Hematocrit 32.8% (35.0-46.0) Mean Corpuscular Volume 91.9fL (81-100) Mean Corpuscular Hemoglobin 29.7pg (27.0-35.0) Mean Corpuscular Hemoglobin Concent 32.3% (32.0-37.0) Red Cell Distribution Width 13.5% (12.3-15.4) Platelet Count 145bil/L (150-400) Neutrophils (%) (Auto) 73.3% (40-74) Lymphocytes (%) (Auto) 16.2% (14-46) Monocytes (%) (Auto) 10.2% (4-12) Eosinophils (%) (Auto) 0.1% (0-5) Basophils (%) (Auto) 0.1% (0-3) Sodium Level 139mEq/L (134-144) Potassium Level 4.0mEq/L (3.5-5.2) Chloride Level 103mEq/L (97-108) Carbon Dioxide Level 21mmol/L (18-29) Blood Urea Nitrogen 23mg/dL (8-27) Creatinine 0.94mg/dL (0.57-1.00) Estimat Glomerular Filtration Rate 82mL/min (>59) Glucose Level 96mg/dL (60-99) Calcium Level 8.9mg/dL (8.5-10.1) Troponin T 0.016ug/L (0.0-0.011) Discharge Medications Discharge Medications Acetaminophen (Tylenol Arthritis) 650 Mg Tablet.er 1,300 MG PO QAM (Reported) Allopurinol (Allopurinol) 300 Mg Tablet 300 MG PO QAM (Reported) Aspirin (Aspirin) 81 Mg Tablet 81 MG PO HS (Reported) Atorvastatin Calcium (Atorvastatin Calcium) 40 Mg Tablet 40 MG PO HS (Reported) Cholecalciferol (Vitamin D3) (Vitamin D3) 5,000 Unit Capsule 5,000 UNIT PO QAM ( Reported) Dextran 70/Hypromellose/Pf (Tears Naturale Free Drops) 1 Each Droperette 2 DROP BOTH_EYES BID (Reported) Fish Oil/Dha/Epa (Fish Oil 1,200 mg Fish Oil) 1 Each Capsule 1 EACH PO QAM ( Reported) L. Acidophilus/L. Rhamnosus (Probiotic 15 Billion Cell Cap) 15 Billion Cell Capsule 1 EACH PO QAM (Reported) Levothyroxine (Levothyroxine) 100 Mcg Tablet 100 MCG PO QAM (Reported) Losartan Potassium (Losartan Potassium) 25 Mg Tablet 25 MG PO QAM (Reported) Metoprolol Tartrate (Metoprolol Tartrate) 25 Mg Tablet 25 MG PO QAM (Reported) Multivitamin (Multivitamins) 1 Each Capsule 1 EACH PO QAM (Reported) Pantoprazole DR (Pantoprazole DR) 40 Mg Tablet.dr 40 MG PO QAM (Reported) Prednisone (PredniSONE) 5 Mg Tab 5 MG PO QAM (Reported) Pregabalin (Lyrica) 150 Mg Capsule 150 MG PO HS (Reported) Triamterene/HCTZ 75-50 mg (Triamterene/HCTZ 75-50 mg) 1 Each Tablet 1 EACH PO QAM (Reported) Ubidecarenone/Vit E Acetate (Co Q-10 100 mg Softgel) 1 Each Capsule 1 EACH PO HS (Reported) Vit C/Tonio AC/Lut/Copper/Znox (Preservision Lutein Softgel) 1 Each Capsule 1 EACH PO BID (Reported) diphenhydrAMINE HCl (Benadryl) 25 Mg Capsule 25 MG PO HS (Reported) Followup Plan Discharge Diet: Heart Healthy Discharge Activity: Limited until seen by PCP Follow-up Provider: Lavell Sullivan MD Follow-up with PCP in: 1 week Follow-up in: 2 weeks (, gastroenterology ) Attending Statement The patient was seen and examined together with Dr. Saleh on 01/11/2017 and I agree with the history, exam and plan as outlined in the note above. . copies to: Lavell Sullivan MD, Oksana S DO Jan 11, 2017 10:42 Dedrick Serna MD Jan 11, 2017 16:50
--- NOTE | 2017-01-11 11:37 | NUR ---
KAVITA explained and signed. Copy KAVITA and Medicare self administered medication information given to pt.
--- NOTE | 2017-01-11 11:45 | NUR ---
Discharge Pt discharged home today at 12:00. Pt off floor via ambulation with all of her belongings in the company of [employer] and to private vehicle. Pt was sent home with education on dehydration and follow up instructions. Pt voiced understanding. No prescriptions were given. [employer] transportation form filled out and faxed to terminal.
== END 2017-01-11 12:05 | disposition home or self-care (01) ==
LOC: SED 12:04 → EDBD 12:04 → EDUNIT# 12:04 → PCC 15:34
PROVIDERS: ADMIT Internal Medicine; ATTEND Internal Medicine
DX: R55 Syncope and collapse (principal); R63.4 Abnormal weight loss; N17.9 Acute kidney failure, unspecified; K52.9 Noninfective gastroenteritis and colitis, unspecified; E27.1 Primary adrenocortical insufficiency; E83.52 Hypercalcemia; I10 Essential (primary) hypertension; I25.10 Atherosclerotic heart disease of native coronary artery without angina pectoris; K21.9 Gastro-esophageal reflux disease without esophagitis; G62.9 Polyneuropathy, unspecified; R09.82 Postnasal drip; E86.0 Dehydration; E78.5 Hyperlipidemia, unspecified; E03.9 Hypothyroidism, unspecified; I25.2 Old myocardial infarction; Z95.5 Presence of coronary angioplasty implant and graft; Z79.52 Long term (current) use of systemic steroids; Z79.82 Long term (current) use of aspirin
CPT/HCPCS: 36415; 70450; 71010; 71260; 74177; 80048; 80053; 83605; 83735; 84484; 85025; 87040; 93005; 96361; 96374; 99291; G0378; J1644; J1720; J7030; J7512; Q9967

== ENCOUNTER 2017-04-28 23:12 | Emergency (ER) | payer MEDICARE, OTHER ==
[~2017-04-28] VITALS: Ht 160 cm; Wt 79.5 kg
[~2017-04-28 23:12] MED LIST changes: -ACET-1453 PO; +ACET-2766 PO; -ALLO100T PO; +ALLO300T2 PO; -ASPI-653 PO; +ASPI-973 PO; +ATOR40TA69 PO; -BANO NS; -CALC1CAP26 PO; +CHOL5000 PO; -CHOL500011 PO; +DEXT1DRO BOTH_EYES; +DIPH25CA6 PO; +FISH1CAP15 PO; +L. A1CAP13 PO; +LEVO100T6 PO; +LOSA25TA21 PO; -LYR75 PO; +METO25TA6 PO; +MULT1CAP33 PO; -OMEG1CAP20 PO; -OMEP20TA86 PO; +PANT40TA3 PO; +PRD5T PO; -PRE5 PO; -PRED5TAB PO; +PREG150C PO; -SIMV80TA PO; -SYN.1T2 PO; -TOPR25T PO; +TRIA1TAB5 PO; +UBID1CAP52 PO; +VIT1CAPS27 PO; -[UNRECOGNIZED DRUG - CODE] PO
[2017-04-28 23:20] VITALS: BP 167/72; PULSE 70; RESP 18; O2SAT 94
--- NOTE | 2017-04-29 00:26 | ED.REPORT ---
HPI-Extremity Problem Upper Date of Service Apr 29, 2017 ED Provider: Antonio Dailey DO Pt is an 81 year old female with a history of HTN, CAD, and Hyperlipidemia who presents to the ED complaining of left arm laceration onset today. She c/o associated left arm pain. She denies any other symptoms. Pt reports that she accidentally got her arm caught in the car door, resulting in her laceration on the left forearm. She states that her last tetanus shot was in 2014. Nursing Notes Stated Complaint: LEFT ARM LACERATION Chief Complaint: Laceration Nursing Notes Reviewed: Yes Allergies: Coded Allergies: NSAIDS (Non-Steroidal Anti-Inflamma (Verified Allergy, Unknown, 01/10/17) Silver (Verified Allergy, Unknown, 01/10/17) alendronate sodium (Verified Allergy, Unknown, 01/10/17) celecoxib (Verified Allergy, Unknown, 01/10/17) fentanyl (Verified Allergy, Unknown, 01/10/17) APNEA gabapentin (Verified Allergy, Unknown, 01/10/17) OVER SEDATION omeprazole (Verified Allergy, Unknown, 01/10/17) silver (Verified Allergy, Unknown, 01/10/17) RED ITCHY RASH Uncoded Allergies: ANTI INFLAMMATORIES (Allergy, Unknown, 01/10/17) Scheduled Acetaminophen (Tylenol Arthritis) 650 Mg Tablet.er 1,300 MG PO QAM Allopurinol (Allopurinol) 300 Mg Tablet 300 MG PO QAM Aspirin (Aspirin) 81 Mg Tablet 81 MG PO HS Atorvastatin Calcium (Atorvastatin Calcium) 40 Mg Tablet 40 MG PO HS Cholecalciferol (Vitamin D3) (Vitamin D3) 5,000 Unit Capsule 5,000 UNIT PO QAM Dextran 70/Hypromellose/Pf (Tears Naturale Free Drops) 1 Each Droperette 2 DROP BOTH_EYES BID Fish Oil/Dha/Epa (Fish Oil 1,200 mg Fish Oil) 1 Each Capsule 1 EACH PO QAM L. Acidophilus/L. Rhamnosus (Probiotic 15 Billion Cell Cap) 15 Billion Cell Capsule 1 EACH PO QAM Levothyroxine (Levothyroxine) 100 Mcg Tablet 100 MCG PO QAM Losartan Potassium (Losartan Potassium) 25 Mg Tablet 25 MG PO QAM Metoprolol Tartrate (Metoprolol Tartrate) 25 Mg Tablet 25 MG PO QAM Multivitamin (Multivitamins) 1 Each Capsule 1 EACH PO QAM Pantoprazole DR (Pantoprazole DR) 40 Mg Tablet.dr 40 MG PO QAM Prednisone (PredniSONE) 5 Mg Tab 5 MG PO QAM Pregabalin (Lyrica) 150 Mg Capsule 150 MG PO HS Triamterene/HCTZ 75-50 mg (Triamterene/HCTZ 75-50 mg) 1 Each Tablet 1 EACH PO QAM Ubidecarenone/Vit E Acetate (Co Q-10 100 mg Softgel) 1 Each Capsule 1 EACH PO HS Vit C/Tonio AC/Lut/Copper/Znox (Preservision Lutein Softgel) 1 Each Capsule 1 EACH PO BID diphenhydrAMINE HCl (Benadryl) 25 Mg Capsule 25 MG PO HS General Time Seen by MD: 00:25 Chief Complaint Arm injury left Hx Obtained From: Patient Arrived By: Walk-in Onset Occurred: Just prior to arrival Symptom Duration: Since onset Caused by: Accidental Location: : Arm left Quality: Painful Severity: Current: Moderate Severity: Maximum: Moderate Immunizations: Tetanus up to date Recent Healthcare: No recent doctor visit, No recent hospitalization Similar Sx Previous: No Past Medical History Past Medical History 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 Alcohol Use: Denies alcohol use Drug Use: Denies drug use Ambulatory Status Independent Review of Systems + Left arm laceration Constitutional: Denies: Fever Musculoskeletal: Reports: Extremity pain Complete sys rev & neg: except as marked. Respiratory: Denies: Non-productive cough, Shortness of breath Physical Exam Initial Vital Signs Vital Signs (First) Date Time Temp Pulse Resp B/P Pulse Ox O2 Delivery O2 Flow Rate FiO2 04/28/17 23:20 36.7 70 18 167/72 94 Initial VS: Reviewed Head / Eyes: Atraumatic, Normocephalic Neck: Supple, Full range of motion Respiratory: Breath sounds normal, Clear to auscultation, No respiratory distress Cardiovascular: Regular rate & rhythm, Heart sounds normal, Intact distal pulses Abdomen / GI: Soft, Non-tender Lower Extremities: Vascular intact, Neuro intact Skin: Warm, Dry, No cyanosis Neurologic: Alert, Oriented, Nonfocal Psychiatric: Mood/affect normal, Behavior normal General/Constitutional: Awake, Alert, Not toxic appearing Upper Extremity / MS: Neurologic intact, Vascular intact 4 cm skin tear on left forearm Skin: Warm, Dry Well perfused Procedures Laceration Management Laceration Management: Steri-strips applied with glue Time: 01:00 Procedure Performed by: ED physician Consent / Setup / Site Prep: Consent from patient, Time-out performed, Hand hygiene observed, Stand sterile technique Local Anesthesia: Lidocaine 1% Wound Preparation: Normal saline Irrigation: Copious Post-Procedure / Complications: Antibiotic oint applied, Dressing applied, No complications, Tolerated procedure well, Patient stable Re-Eval/Medical Decision Source of Hx: Old records Re-Evaluation/Progress : Time of Eval: 01:08 Re-Evaluation/Progress Note: Pt rechecked. Informed pt of plan for discharge. Pt understands and agrees with plan for discharge. F/U instructions and RTER warnings given. All questions addressed. Counseled Regarding: Diagnosis, Need for follow-up, When/why to return to ED Discharge & Departure Impression: Primary Impression: Skin tear Disposition: Home Discharge Condition All VS Reviewed: Yes Condition: Stable Patient Instructions: Skin Tear (ED) Additional Instructions: The steri-strip and glue will dry. Keep your arm wrapped tonight and tomorrow. Watch for signs of infection including redness, swelling, and discharge. Have your wound checked by a medical professional in 48 hours. Return to the Emergency Department for any new or worrisome symptoms. Referrals: Lavell Sullivan MD (PCP) Scribe Attestation Portions of this note were transcribed by Yarely Tamayo. I, Dr. Dailey personally performed the history, physical exam and medical decision-making; I reviewed and confirmed the accuracy of the information in the transcribed note. Signed by : Velma Brown, 04/28/17. copies to: Lavell Sullivan MD, Todd P DO Apr 29, 2017 00:26 Yarely Hayden Apr 29, 2017 00:42
[2017-04-29] MEDS ORDERED: Tissue Adhesive Liq (CS Supplied) TOPICAL ONE (00:40)
== END 2017-04-29 01:39 | disposition home or self-care (01) ==
LOC: SED 23:12
DX: S51.812A Laceration without foreign body of left forearm, initial encounter (principal); W23.0XXA Caught, crushed, jammed, or pinched between moving objects, initial encounter; Y93.89 Activity, other specified; Y92.810 Car as the place of occurrence of the external cause; Y99.8 Other external cause status; I10 Essential (primary) hypertension; I25.10 Atherosclerotic heart disease of native coronary artery without angina pectoris; E78.5 Hyperlipidemia, unspecified; E27.1 Primary adrenocortical insufficiency; K21.9 Gastro-esophageal reflux disease without esophagitis; E07.9 Disorder of thyroid, unspecified; Z95.5 Presence of coronary angioplasty implant and graft; Z79.52 Long term (current) use of systemic steroids; Z79.82 Long term (current) use of aspirin; Z88.6 Allergy status to analgesic agent; Z88.5 Allergy status to narcotic agent; Z88.8 Allergy status to other drugs, medicaments and biological substances